=== PATIENT | female | born 1955 | race Caucasian/White ===

== ENCOUNTER 2018-05-15 09:17 | Emergency (ER) | payer OTHER, MEDICARE ==
[~2018-05-15] VITALS: Ht 154.9 cm; Wt 61.2 kg
[~2018-05-15 09:17] MED LIST: ASPIRIN325 PO; CALCIUM 600 +1 EAC1; CYCLOBENZAPRINE10 MG PO; CYMBALTA60 MG PO; ENDOCET 5-3251 EACH; FLAXSEED OIL1000 MG; GLYCOLAX POWDER17 GM; HYDROCODON-ACE1 EACH; LANSOPRAZOLE30 MG; MULTIVITAMINS; NEURONTIN600 MG PO; NIACIN SR 250250 MG; NORCO 5-325 TA1 EACH PO; NORTRIPTYLINE H25 M3 PO; PERCOCET 5-3251 EACH PO; PREDNISONE 20 M20 MG PO; TORADOL 10 MG T10 MG PO; TRICOR145 MG PO; VITAMIN B-12500 MCG PO
[2018-05-15] MEDS ORDERED: GLUCOSAMINE HC500 MG PO (09:35)
[2018-05-15] MEDS ORDERED: ADVAIR HFA 230M12 GM INH (09:35)
[2018-05-15] MEDS ORDERED: FLONASE 0.05%50 MCG NASAL (09:36)
[2018-05-15] MEDS ORDERED: PROAIR HFA8.5 GM (09:36)
[2018-05-15] MEDS ORDERED: PRAVACHOL20 MG PO (09:37)
[2018-05-15] MEDS ORDERED: ALLEGRA ALLERG180 MG PO (09:37)
[2018-05-15] MEDS ORDERED: GARCINIA CAMBO1 EACH PO (09:38)
[2018-05-15 10:17] LABS: URINE BILIRUBIN NEGATIVE (Negative); URINE BLOOD NEGATIVE (Negative); URINE CLARITY CLEAR; URINE GLUCOSE-RANDOM NEGATIVE (Negative); URINE KETONES NEGATIVE (Negative); URINE LEUKOCYTES-REFLEX NEGATIVE (Negative); URINE NITRITE-REFLEX NEGATIVE (Negative); URINE PROTEIN NEGATIVE (Negative); URINE SPECIFIC GRAVITY <= 1.005 (1.005-1.030); URINE UROBILINOGEN 0.2 E.U./dl (0.2-1.0)
[2018-05-15 10:17] LABS: ABSOLUTE EOSINOPHILS 0.2 thou/uL (0.0-0.7); ABSOLUTE LYMPHOCYTES 2.1 thou/uL (0.8-5.3); ABSOLUTE MONOCYTES 0.4 thou/uL (0.0-1.2); ABSOLUTE NEUTROPHILS 2.2 thou/uL (1.6-8.1); BASOPHILS 0.8 %; EOSINOPHILS 3.2 %; HEMATOCRIT 44.1 % (37.0-47.0); HEMOGLOBIN 15.3 gm/dL (12.0-15.0); LYMPHOCYTES 42.8 %; MCHC 34.7 g/dL (28.0-37.0); MCV 95.3 fL (80.0-100.0); MPV 8.5 fl. (7.2-11.1); NUCLEATED RBCS 0 /100WBC; PLATELET COUNT* 307 thou/uL (150-400); POLYS 45.2 %; RBC 4.63 mil/uL (4.20-5.00); RDW-CV 13.3 % (10.5-14.5); WBC 4.8 thou/uL (4.0-11.0)
[2018-05-15 10:18] LABS: URINE COLOR PALE YELLOW
[2018-05-15 10:23] LABS: ANION GAP 4 mmol/L (7-16); BUN 11 mg/dL (7-18); CALCIUM 9.3 mg/dL (8.5-10.1); CHLORIDE 103 mmol/L (98-107); CO2 30 mmol/L (21-32); CREATININE 0.7 mg/dL (0.6-1.3); GLUCOSE 102 mg/dL (70-99); POTASSIUM 3.8 mmol/L (3.5-5.1); SODIUM 137 mmol/L (136-145)
[2018-05-15 10:27] LABS: APTT 26.5 Seconds (25.0-31.3); PROTIME 9.9 Seconds (9.20-11.50)
[2018-05-15 10:30] LABS: ALBUMIN 3.9 g/dL (3.4-5.0); ALKALINE PHOSPHATASE 118 U/L (46-116); LIPASE 216 U/L (73-393); SGOT 21 U/L (15-37); SGPT 23 U/L (30-65); TOTAL BILIRUBIN 0.7 mg/dL (<0.1-1.0); TOTAL PROTEIN 7.7 g/dL (6.4-8.2); TROPONIN-I LEVEL <0.06 ng/mL (<0.06)
[2018-05-15 11:05] VITALS: BP 153/91
--- NOTE | 2018-05-16 11:36 | EKG ---
[place] [address] ELECTROCARDIOGRAM REPORT Name: KADEEM CLARK Room: [facility]#: [id number] Admission: 05/15/18 Attend Phys: Discharge: 05/15/18 Date of : 51 Report #: [id number] THIS REPORT FOR: //name// [facility] ED Test Date: 2018-05-15 Test Time: 10:02:04 Pat Name: KADEEM LIEBERMANELLIOTT BRENNAN Department: Room: Gender: F [employer] Representative: Shwetha WANG : 1955 Requested By: Jairo Corea Order Number: [id number] MD: Brian Fuentes Measurements Intervals [place] Rate: 85 P: 2 W[place]: 153 QRS: 16 QRSD: 100 T: 24 QT: 391 QTc: 465 Interpretive Statements Sinus rhythm No previous ECG available for comparison Electronically Signed On 05-16-2018 11:36:39 CDT by Brian Fuentes [email or web address] <ELECTRONICALLY SIGNED> By: Brian Fuentes MD, [facility] 05/16/18 1136 1002 1002 Brian Fuentes MD, FACC /EPI
== END 2018-05-15 11:07 | disposition home or self-care (01) ==
LOC: M.ERS 09:17
PROVIDERS: Family Medicine
DX: R53.1 Weakness (principal); R42 Dizziness and giddiness; E78.00 Pure hypercholesterolemia, unspecified; E78.5 Hyperlipidemia, unspecified; Z90.49 Acquired absence of other specified parts of digestive tract; Z88.5 Allergy status to narcotic agent